=== PATIENT | female | born 1940 | race Caucasian/White ===

== ENCOUNTER 2019-12-13 06:59 | Day surgery (SDC) | payer MEDICARE ==
[~2019-12-13] VITALS: Ht 157.5 cm; Wt 51.8 kg
[2019-12-13 07:45] LABS: APTT 26.8 SECONDS (22.8-39.4); PROTIME 13.1 SECONDS (11.6-15.0)
[2019-12-13 07:51] VITALS: Ht 157.5 cm; Wt 51.8 kg
[2019-12-13 07:55] LABS: HEMATOCRIT 46.4 % (36.0-48.0); HEMOGLOBIN 15.1 g/dL (12-16); MCH 28.8 pg (26.0-34.0); MCHC 32.5 g/dL (31.0-37.0); MCV 88.4 fL (80.0-100.0); MEAN PLATELET VOLUME 10.6 fL (7.4-10.4); PLATELET COUNT 236 10x3/uL (130-400); RBC 5.25 10x6/uL (4.00-5.40); RDW 12.3 % (11.5-14.5); WBC 6.6 10x3/uL (4.8-10.8)
[2019-12-13 07:58] LABS: ANION GAP 13.1 mmol/L (8-16); CARBON DIOXIDE 30.8 mmol/L (21.0-32.0); CREATININE - SERUM 1.1 mg/dL (0.6-1.3); POTASSIUM - SERUM 3.9 mmol/L (3.5-5.1)
[2019-12-13] MEDS ORDERED: LOPRESSOR25 MG PO (08:06)
[2019-12-13] MEDS ORDERED: LISINOPRIL-HCT1 EAC7 PO (08:08)
[2019-12-13] MEDS ORDERED: OMEPRAZOLE20 M1 PO (08:09)
[2019-12-13] MEDS ORDERED: LIPITOR20 MG PO (08:09)
--- NOTE | 2019-12-13 10:49 | NUR ---
PROCEDURE CANCELED BY RADIOLOGY. PIV DC'D AT 1030AM. PT FAMILY MEMBER CALLED FOR PICK-UP. PT DC'D VIA WC TO FRONT ENTRANCE.
== END 2019-12-13 10:45 | disposition home or self-care (01) ==
LOC: D.SP 06:59 → D.CT 10:00 → D.SP 10:00
PROVIDERS: Specialist; ATTEND Nurse Practitioner Family
DX: R91.8 Other nonspecific abnormal finding of lung field (principal); Z53.9 Procedure and treatment not carried out, unspecified reason

== ENCOUNTER 2020-05-07 12:57 | Observation (INO) | payer MEDICARE ==
[~2020-05-07] VITALS: Ht 157.5 cm; Wt 49.1 kg
--- NOTE | ~2020-05-07 | OP ---
PATIENT NAME: BLAINE JOYCE MEDICAL RECORD: [id number] :38 LOCATION:[id number] ADMISSION DATE:06/04/20 SURGEON: KEN PATEL MD DATE OF OPERATION: 06/04/2020 PREOPERATIVE DIAGNOSES: 1. Gastroesophageal reflux disease. 2. Hiatal hernia. 3. Hypertension. 4. Hyperlipidemia. 5. History of supraventricular tachycardia. POSTOPERATIVE DIAGNOSES: 1. Gastroesophageal reflux disease. 2. Hiatal hernia. 3. Hypertension. 4. Hyperlipidemia. 5. History of supraventricular tachycardia. PROCEDURE: Laparoscopic Nori with hiatal hernia repair. SURGEON: Ken Patel MD DESCRIPTION OF PROCEDURE: The patient's abdomen was prepped and draped in sterile fashion. A Veress needle was inserted in the left subcostal region. The abdomen was insufflated. An 11-mm Visiport trocar was inserted in the midline just above the umbilicus. We could see the Veress needle and there was no sign of any injury to bowel or surrounding structures. The Veress needle was removed and an 11-mm trocar was placed in the left subcostal region, a 5-mm trocar was placed in the epigastric region, a 5-mm trocar was placed in the left lateral abdomen and a final 5-mm trocar was placed in the right lateral subcostal region. A liver retractor was inserted and the left lobe of the liver was elevated. The patient had a noticeable hiatal hernia with about the upper quarter to the upper third of the stomach projecting up into the chest. We began by taking down the lesser omentum using Harmonic scalpel. We continued this dissection to the right side of the right rom. We scored the peritoneum and then entered into the thoracic cavity, taking down the hernia sac. We went as far anteriorly and posteriorly as possible, taking down the hernia sac from the thoracic cavity. We then approached the greater curvature of the stomach and began taking down the short gastrics using Harmonic scalpel. This was done for the upper third of the stomach. As we took these down, we approached the left side of the right rom and again scored the peritoneum and entered the thoracic cavity, taking down the hernia sac. At this point, we had a 360-degree inspection of the patient's distal esophagus. At this point, the distal esophagus was easily rested in the abdominal cavity without any tension. The hernia sac and fat pad were removed using Harmonic scalpel. There was an arterial blood vessel that was encountered with this and this was clipped proximally and distally and ligated. The patient's esophageal hiatus was then reapproximated with interrupted 0 Polydek times 3. We then performed a 360-degree posterior wrap of the fundus of the stomach around the distal esophagus utilizing interrupted 0 Polydek times 3 with the top and the bottom suture incorporating a bite of the esophagus. The area was irrigated out with normal saline and care was taken to assure there were no signs of any bleeding. There was a small tear on the undersurface of the left lobe of the liver, which was treated with electrocautery. This was about 1-2 cm in length and had no OPERATIVE REPORT [id number] BLAINE JOYCE evidence of any active bleeding at the conclusion of the case. The liver retractor was then removed. The 11-mm trocar site fascias were closed with interrupted 0 Vicryl using a Ton-Jose Ramon suture passer device. The ports and insufflation were then removed. The skin incisions were infused with 10 mL of 0.25% Marcaine with epinephrine and then closed with subcutaneous 5-0 Monocryl. COMPLICATIONS: None. CONDITION: Stable. ANESTHESIA: General endotracheal and local. BLOOD LOSS: Minimal. TRANSINT:[id number] Voice Confirmation ID: [id number] DOCUMENT ID: [id number] KEN PATEL MD CC: ALMAS WEINBERG KIMBERLY D [id number] DICTATION DATE: 06/04/20 1105 GUN NUMBER: 06/04/20 1740 ADM IN [place] [id number] [place] [id number]
[~2020-05-07 12:57] MED LIST: LIPITOR20 MG PO; LISINOPRIL-HCT1 EAC7 PO; LOPRESSOR25 MG PO; OMEPRAZOLE20 M1 PO
[2020-06-03] MEDS ORDERED: CO Q-10100 MG PO (10:04)
[2020-06-03] MEDS ORDERED: LOSARTAN-HCTZ1 EAC1 PO (10:05)
[2020-06-04 07:00] LABS: BASOPHILS 0.2 % (0-2); EOSINOPHILS 6.6 % (0-7); HEMATOCRIT 42.2 % (36.0-48.0); HEMOGLOBIN 13.3 g/dL (12-16); IMMATURE GRANULOCYTES 0.2 % (0-5); LYMPHOCYTES 28.9 % (15-50); MCH 28.3 pg (26.0-34.0); MCHC 31.5 g/dL (31.0-37.0); MCV 89.8 fL (80.0-100.0); MEAN PLATELET VOLUME 10.5 fL (7.4-10.4); MONOCYTES 9.1 % (2-11); NEUTROPHIL ABS# 2.66 10x3/uL (1.56-6.13); RDW 12.7 % (11.5-14.5); WBC 4.8 10x3/uL (4.8-10.8)
[2020-06-04 07:01] LABS: PLATELET COUNT 185 10x3/uL (130-400)
[2020-06-04 07:04] LABS: ANION GAP 10.5 mmol/L (8-16); CALCIUM 9.3 mg/dL (8.5-10.1); CARBON DIOXIDE 30.2 mmol/L (21.0-32.0); CREATININE - SERUM 1.2 mg/dL (0.6-1.3); POTASSIUM - SERUM 3.7 mmol/L (3.5-5.1)
[2020-06-04 07:55] VITALS: BP 125/57; BMI 18.8
--- NOTE | 2020-06-04 11:26 | NUR ---
PT BP HIGH. ANESTHESIA ORDERED HYDRAL 10 MG
--- NOTE | 2020-06-04 11:48 | NUR ---
DR ONOFRE STATED TO GIVE ANOTHER 5 MG OF HYDRAL
--- NOTE | 2020-06-04 11:50 | NUR ---
RECEIVED PATIENT TO ROOM FROM RECOVERY, PATIENT IS ASLEEP AND EASILY AWAKENED, HAS 5 ABD LAP SITES, CDI, C/O ABD PAIN, SORENESS. IV IN LEFT FA, PATENT, CDI, 2L NC SAT AT 99%. NO NEEDS AT THIS TIME, ASSUME PATIENT CARE
--- NOTE | 2020-06-04 11:54 | NUR ---
12.5 DEMEROL GIVEN FOR SHIVERING BASED ON AGE.
--- NOTE | 2020-06-04 11:56 | NUR ---
PT SLEEPING COMFORATBLY. AWAKENS UPON BEING TALKED TO. WHEN ASKED PAIN LEVEL PATIENT NODS NO.
[2020-06-04 12:09] VITALS: BP 148/57
--- NOTE | 2020-06-04 12:24 | NUR ---
STARTED PATIENT [employer] AND EXPLAINED HOW TO USE, PATIENT VERBALIZED UNDERSTANDING WILL CONTINUE WITH PLAN OF CARE, CL IN REACH
--- NOTE | 2020-06-04 14:43 | NUR ---
IN ROOM, FAMILY AT BEDSIDE. BED LOW POSITION, CALL LIGHT IN REACH. FREE FROM NEEDS AT THIS TIME. WILL CONTINUE TO MONITOR.
[2020-06-04 15:25] VITALS: BP 124/56; Ht 157.5 cm; Wt 49.1 kg
[2020-06-04 18:13] VITALS: BP 129/69
[2020-06-04 20:00] VITALS: BP 103/56
[2020-06-05 04:00] VITALS: BP 142/61
--- NOTE | 2020-06-05 05:27 | NUR ---
I have reviewed this patient and I concur with the Shift Assessment completed by the Licensed Practical Nurse today this shift.
[2020-06-05 06:05] LABS: BASOPHILS 0.1 % (0-2); EOSINOPHILS 0.5 % (0-7); HEMATOCRIT 38.4 % (36.0-48.0); IMMATURE GRANULOCYTES 0.2 % (0-5); LYMPHOCYTE ABS# 1.14 10x3/uL (1.18-3.74); LYMPHOCYTES 13.7 % (15-50); MCH 27.9 pg (26.0-34.0); MCHC 31.3 g/dL (31.0-37.0); MCV 89.3 fL (80.0-100.0); MEAN PLATELET VOLUME 10.5 fL (7.4-10.4); MONOCYTES 6.8 % (2-11); NEUTROPHIL ABS# 6.57 10x3/uL (1.56-6.13); NEUTROPHILS 78.7 % (40-80); PLATELET COUNT 174 10x3/uL (130-400); RDW 12.7 % (11.5-14.5)
[2020-06-05 06:13] LABS: WBC 8.4 10x3/uL (4.8-10.8)
[2020-06-05 06:23] LABS: ANION GAP 13.5 mmol/L (8-16); CALCIUM 8.7 mg/dL (8.5-10.1); CARBON DIOXIDE 26.1 mmol/L (21.0-32.0); CREATININE - SERUM 0.9 mg/dL (0.6-1.3); POTASSIUM - SERUM 3.6 mmol/L (3.5-5.1)
--- NOTE | 2020-06-05 07:28 | NUR ---
PATIENT ASLEEP IN BED EASILY AWAKENED. LAP SITES X5 CDI, ROOM AIR, UP WITH ASSISTANCE, ENCOURAGED PT TO USE NURSING HOME AIDE WHEN HURTING, PATIENT STATES SHE IS NOT HURTING JUST SORE. CL IN REACH, CONTINUE WITH PLAN OF CARE
[2020-06-05 08:11] VITALS: BP 137/66
--- NOTE | 2020-06-05 09:00 | NUR ---
PATIENT BARIUM SWALLOW RESULTS BACK, SPOKE TO EM FUNK WHO STATED TO START PT ON FLD, DAUGHTER AT BEDSIDE, NO OTHER NEEDS AT THIS TIME. CONTINUE WITH PLAN OF CARE
[2020-06-05 12:56] VITALS: BP 139/63
[2020-06-05] MEDS ORDERED: HYDROCODON-ACE1 EAC7 PO (13:03)
[2020-06-05] MEDS ORDERED: REGLAN5 MG PO (13:04)
--- NOTE | 2020-06-05 14:01 | NUR ---
PATIENT EXCITED TO BE DC, EXPLAINED STILL WAITING ON DC PAPERWORK. NO COMPLAINTS AT THIS TIME. CONTINUE WITH PLAN OF CARE
--- NOTE | 2020-06-05 14:45 | NUR ---
WENT OVER PATIENT DC PAPERWORK AND INSTRUCTIONS, ALL QUESTIONS ANSWERED, IV DC WITH CATHETER INTACT. PATIENT WHEELED DOWN VIA WC WITH CONSULTANTS INTERN AND DAUGHTER.
== END 2020-06-05 15:01 | disposition home or self-care (01) ==
LOC: D.OPS 05-26 10:30 → OBSVTIME 06-04 05:50 → D.OPS 06-04 05:50 → D.MS 06-04 05:50 → D.OPS 06-04 08:00 → EDSTATUS 06-04 10:45 → D.OPS 06-04 12:11 → D.MS 06-04 12:11
PROVIDERS: Anesthesiology; Surgery; ADMIT Surgery; ATTEND Surgery
DX: K21.9 Gastro-esophageal reflux disease without esophagitis (principal); K44.9 Diaphragmatic hernia without obstruction or gangrene; I10 Essential (primary) hypertension; E78.5 Hyperlipidemia, unspecified

== ENCOUNTER 2020-07-02 11:25 | Emergency (ER) | payer MEDICARE ==
[~2020-07-02] VITALS: Ht 157.5 cm; Wt 45.0 kg
[~2020-07-02 11:25] MED LIST changes: +CO Q-10100 MG PO; +HYDROCODON-ACE1 EAC7 PO; +LOSARTAN-HCTZ1 EAC1 PO; +REGLAN5 MG PO
[2020-07-02 11:57] VITALS: Ht 157.5 cm; Wt 45.0 kg
[2020-07-02 13:01] VITALS: BP 136/74
== END 2020-07-02 13:02 | disposition home or self-care (01) ==
LOC: D.ER 11:25
DX: S09.90XA Unspecified injury of head, initial encounter (principal); S01.81XA Laceration without foreign body of other part of head, initial encounter; W01.10XA Fall on same level from slipping, tripping and stumbling with subsequent striking against unspecified object, initial encounter; Y93.9 Activity, unspecified; Y92.9 Unspecified place or not applicable; I10 Essential (primary) hypertension

== ENCOUNTER → 2020-08-18 10:01 | Outpatient (CLI) | payer MEDICARE ==
[2020-07-02 11:57] VITALS: BMI 18.1
== END | disposition home or self-care (01) ==
LOC: D.CT 08-14 13:30
PROVIDERS: ATTEND Nurse Practitioner Family
DX: R91.8 Other nonspecific abnormal finding of lung field (principal)